=== PATIENT | male | born 1995 | race Caucasian/White ===

== ENCOUNTER 2020-02-19 11:39 | Emergency (ER) | payer MEDICAID ==
[2020-02-19] MEDS ORDERED: IBUPROFEN 800 MG TABLET PO ONE (12:03)
--- NOTE | 2020-02-19 12:09 | ER Document Report ---
HPI - HPI Time Seen by Provider: 02/19/20 12:00 Pain Level: 4 Notes: 24-year-old male presents emergency room with complaints of right elbow and right forearm pain after a box truck door fell onto his right forearm and right elbow 2 hours ago. Denies any other area of injury. States pain is worse with movement, 5 out of 5 with movement, at rest it is 2 out of 5. No [id number] medications have been tried. No icing or heat has been applied. Denies any numbness or tingling down the arm. Patient states pain is worse with supination. Denies fevers, chills, chest pain,palpitations, shortness of breath, dyspnea, nausea, vomiting, diarrhea, abdominal pain, hematuria,blurred vision, double vision, loss of vision, speech changes, LH, dizziness, syncope, headaches, wheezing, ST, URI, neck pain, weakness, bowel or bladder dysfunction, saddle anesthesia, numbness or tingling in bilateral upper or lower extremities equally, muscle paralysis, weakness in bilateral upper or lower extremities equally or rash. Denies IV drug use. MEDICATIONS: I agree with the patient medications as charted by the RN. ALLERGIES: I agree with the allergies as charted by the RN. PAST MEDICAL HISTORY/PAST SURGICAL HISTORY: Reviewed and agree as charted by RN. SOCIAL HISTORY: Reviewed and agree as charted by RN. FAMILY HISTORY: No significant familial comorbid conditions directly related to patient complaint EXAM: Reviewed vital signs as charted by RN. REVIEW OF SYSTEMS:reviewed vital signs by RN CONSTITUTIONAL : Denies fever, chills, or sweats. Denies recent illness. EENT: Denies eye, ear, throat, or mouth pain or symptoms. Denies nasal or sinus congestion or discharge. Denies throat, tongue, or mouth swelling or difficulty swallowing. CARDIOVASCULAR: Denies chest pain. Denies palpitations or racing or irregular heart beat. Denies ankle edema. RESPIRATORY: Denies cough, cold, or chest congestion. Denies shortness of breath, difficulty breathing, or wheezing. GASTROINTESTINAL: Denies abdominal pain or distention. Denies nausea, vomiting , or diarrhea. Denies blood in vomitus, stools, or per rectum. Denies black, tarry stools. Denies constipation. GENITOURINARY: Denies difficulty urinating, painful urination, burning, frequency, blood in urine, or discharge. MUSCULOSKELETAL: reports right elbow/forearm pain. Denies back or neck pain or stiffness. Denies joint pain or swelling. SKIN: Denies rash, lesions or sores. HEMATOLOGIC : Denies easy bruising or bleeding. LYMPHATIC: Denies swollen, enlarged glands. NEUROLOGICAL: Denies confusion or altered mental status. Denies passing out or loss of consciousness. Denies dizziness or lightheadedness. Denies headache. Denies weakness or paralysis or loss of use of either side. Denies problems with gait or speech. Denies sensory loss, numbness, or tingling. Denies s eizures. PSYCHIATRIC: Denies anxiety or stress. Denies depression, suicidal ideation, or homicidal ideation. ALL OTHER SYSTEMS REVIEWED AND NEGATIVE. Dictation was performed using [employer] recognition software PHYSICAL EXAMINATION: GENERAL: Well-appearing, well-nourished and in no acute distress. HEAD: Atraumatic, normocephalic. EYES: Pupils equal round and reactive to light, extraocular movements intact, sclera anicteric, conjunctiva are normal. ENT: Nares patent, oropharynx clear without exudates. Moist mucous membranes. NECK: Normal range of motion, supple without lymphadenopathy LUNGS: Breath sounds clear to auscultation bilaterally and equal. No wheezes rales or rhonchi. HEART: Regular rate and rhythm without murmurs ABDOMEN: Soft, nontender, nondistended abdomen. No guarding, no rebound. No masses appreciated. Musculoskeletal: Normal range of motion, no pitting or edema. No cyanosis. right elbow with abduction and flexion. pain with supination, pronation, extension. Locate Technician + 2 BUE equally. APROM in shoulder. DTR +2 in BUE equally. No Noted crepitus with APROM in elbow. negative drop arm, neer sign, morfin test, Full motor and sensory function in BIBI. No vascular compromise. No noted swelling, ecchymosis, lacerations, scars. Noted abrasions to lateral aspect of right elbow. No erythema or induration noted to area. Intact median, ulnar and radial nerves bilaterally and equally. muscle strength 5/5 NEUROLOGICAL: Cranial nerves grossly intact. Normal speech, normal gait. Normal sensory, motor exams PSYCH: Normal mood, normal affect. SKIN: Warm, Dry, normal turgor, no rashes or lesions noted. - MUSCULOSKELETAL Musculoskeletal: REPORTS: Extremity pain - R Arm Past Medical History - General Information source: Patient - Social History Smoking Status: Current Every Day Smoker Frequency of alcohol use: None Drug Abuse: None Family History: Reviewed & Not Pertinent Patient has homicidal ideation: No - Immunizations Immunizations up to date: Yes Hx Diphtheria, Pertussis, Tetanus Vaccination: Yes Vertical Provider Document - CONSTITUTIONAL Agree With Documented VS: Yes Exam Limitations: No Limitations General Appearance: WD/WN - INFECTION CONTROL TRAVEL OUTSIDE OF THE [place] IN LAST 30 DAYS: No Course - Re-evaluation Re-evalutation: 02/19/20 12:07 Afebrile vital stable no distress. 800 mg of ibuprofen to for slight discomfort. X-ray of right elbow and right forearm negative for any acute fracture dislocation or foreign body. Does the patient that he does have a sprain. Advised to follow-up in 5 days for repeat x-rays if he still having same pain is or can be occult fractures not seen on first injury due to swelling. Patient placed in a sling, patient given prescription for naproxen and advised to follow-up with clinical studies specialist as well as primary care provider. Alternate between ice and heat today and then switch over to heat 20 minutes on 20 minutes off several times a day. Advised to take arm out of sling to prevent contracture. After performing a Medical Screening Examination, I estimate there is LOW risk for OPEN FRACTURE, COMPARTMENT SYNDROME, DEEP VENOUS THROMBOSIS, ACUTE TENDON RUPTURE, or NEUROVASCULAR INJURY thus I consider the discharge disposition reasonable. I have reevaluated this patient multiple times and no significant life threatening changes are noted. The patient and I have discussed the diagnosis and risks, and we agree with discharging home to closely follow-up with their primary doctor or the referral orthopedist with the understanding that symptoms and presentations can change. We also discussed returning to the Emergency Department immediately if new or worsening symptoms occur. We have discussed the symptoms which are most concerning (e.g., changing or worsening pain, numbness, weakness) that necessitate immediate return 02/19/20 13:08 - Vital Signs Vital signs: Temp Pulse Resp BP Pulse Ox 98.7 F 85 18 138/87 H 99 02/19/20 11:44 02/19/20 11:44 02/19/20 11:44 02/19/20 11:44 02/19/20 11:44 Discharge - Discharge Clinical Impression: Right elbow pain, Right forearm pain Condition: Stable Disposition: HOME, SELF-CARE Instructions: Anti-Inflammatory Medication ([facility]), Sling as Treatment ([facility]) Additional Instructions: Your x-rays today were negative for any acute fracture dislocation. Please wear the sling as directed. Please follow-up with clinical studies specialist within 24 to 48 hours. Follow-up with your primary care provider as needed. Alternate between Tylenol and ibuprofen for pain control return immediately for any new or worsening symptoms. Follow up with primary care provider, call tomorrow to make followup appointment. Prescriptions: Naproxen 500 mg PO BID #10 tablet Forms: Return to Work Referrals: CARLA LYNNE MD [ACTIVE STAFF] - Follow up as needed SARA KNOX MD [ACTIVE STAFF] - Follow up as needed
--- NOTE | 2020-02-19 12:39 | RADIOLOGY REPORT (SQ) ---
EXAM DESCRIPTION: ELBOW RIGHT OVER 2 VIEWS IMAGES COMPLETED DATE/TIME: 02/19/2020 12:21 pm REASON FOR STUDY: box door from truck fell onto R elbow/Rforearm COMPARISON: None. NUMBER OF VIEWS: Four views. TECHNIQUE: AP, lateral, and both oblique radiographic images acquired of the right elbow. LIMITATIONS: None. FINDINGS: MINERALIZATION: Normal. BONES: No acute fracture or dislocation. No worrisome bone lesions. JOINT: No effusion. SOFT TISSUES: No soft tissue swelling. No foreign body. OTHER: No other significant finding. IMPRESSION: NEGATIVE STUDY OF THE RIGHT ELBOW. NO RADIOGRAPHIC EVIDENCE OF ACUTE INJURY. TECHNICAL DOCUMENTATION: JOB ID: [id number] 2010 [employer]- All Rights Reserved Reading location - IP/workstation name: [email or web address]
--- NOTE | 2020-02-19 12:39 | RADIOLOGY REPORT (SQ) ---
EXAM DESCRIPTION: FOREARM RIGHT IMAGES COMPLETED DATE/TIME: 02/19/2020 12:21 pm REASON FOR STUDY: box door from truck fell onto R elbow/Rforearm COMPARISON: None. NUMBER OF VIEWS: Two views. TECHNIQUE: Two radiographic images acquired of the right forearm, including elbow and wrist in at le ast one projection. LIMITATIONS: None. FINDINGS: MINERALIZATION: Normal. BONES: No acute fracture. No worrisome bone lesions. SOFT TISSUES: No obvious swelling or foreign body. OTHER: No other significant finding. IMPRESSION: NEGATIVE STUDY OF THE RIGHT FOREARM. NO RADIOGRAPHIC EVIDENCE OF ACUTE INJURY. TECHNICAL DOCUMENTATION: JOB ID: [id number] 2010 [employer]- All Rights Reserved Reading location - IP/workstation name: [email or web address]
[2020-02-19 12:46] VITALS: BP 136/83
== END 2020-02-19 13:00 | disposition home or self-care (01) ==
LOC: ER 11:39
DX: M25.521 Pain in right elbow (principal); M79.631 Pain in right forearm; W20.8XXA Other cause of strike by thrown, projected or falling object, initial encounter; F17.200 Nicotine dependence, unspecified, uncomplicated
CPT/HCPCS: 99283; 73080; 73090; J3490

== ENCOUNTER 2020-06-22 14:55 | Emergency (ER) | payer MEDICAID ==
[2020-06-22 15:10] VITALS: BP 132/84
[2020-06-22] MEDS ORDERED: LIDOCAINE 1% INJ-PF (10 MG/ML) 30 ML SDV ONE (15:28)
--- NOTE | 2020-06-22 15:31 | ER Document Report ---
ED General - General Chief Complaint: Abscess Stated Complaint: ABSCESS Time Seen by Provider: 06/22/20 15:06 Primary Care Provider: [facility] [Provider Group] - Follow up as needed [facility] [Provider Group] - Follow up as needed TRAVEL OUTSIDE OF THE [place] IN LAST 30 DAYS: No - HPI Notes: Patient is a 24-year-old male who presents with an abscess to his left buttock that began 5 days ago. Patient states he was seen at urgent care yesterday and was placed on Bactrim. He states his pain worsened today which caused him to come to the ED. He denies fever, chest pain, and shortness of breath. He reports a prior history of 3 abscesses in the same area, 2 were treated with antibiotics alone where one had to be lanced. He denies any other complaints today. - Related Data Allergies/Adverse Reactions: No Known Allergies Allergy (Verified 06/22/20 15:12) Past Medical History - General Information source: Patient - Social History Smoking Status: Current Every Day Smoker Frequency of alcohol use: Occasional Drug Abuse: Marijuana Family History: Reviewed & Not Pertinent - Immunizations Immunizations up to date: Yes Hx Diphtheria, Pertussis, Tetanus Vaccination: Yes Review of Systems - Review of Systems Constitutional: No symptoms reported EENT: No symptoms reported Cardiovascular: No symptoms reported Respiratory: No symptoms reported Gastrointestinal: No symptoms reported Genitourinary: No symptoms reported Male Genitourinary: No symptoms reported Musculoskeletal: No symptoms reported Skin: See HPI Hematologic/Lymphatic: No symptoms reported Neurological/Psychological: No symptoms reported Physical Exam - Vital signs Vitals: Temp Pulse Resp BP Pulse Ox 98.4 F 130 H 18 132/84 H 100 06/22/20 15:06 06/22/20 15:06 06/22/20 15:06 06/22/20 15:06 06/22/20 15:06 - Notes Notes: PHYSICAL EXAMINATION: GENERAL: Well-appearing, well-nourished and in no acute distress. HEAD: Atraumatic, normocephalic. EYES: sclera anicteric, conjunctiva are normal. ENT: Moist mucous membranes. NECK: Normal range of motion LUNGS: Normal work of breathing HEART: 2+ radial pulses bilaterally EXTREMITIES: no pitting or edema. No cyanosis. NEUROLOGICAL: No focal neurological deficits. Moves all extremities spontaneously and on command. PSYCH: Normal mood, normal affect. SKIN: ~6cm area of erythema and warmth with fluctance and induration to the left buttock. No involvement or extension into the rectum. No pustule or active drainage. Course - Re-evaluation Re-evalutation: Patient is a 24 y/o male who presents with an abscess to his left buttock that began five days ago and continues to worsen. Patient was started on bactrim yesterday by a provider at an urgent care. Vital signs are normal and patient is afebrile. On exam, ~6cm abscess to the left buttock with no involvement or extension into the rectum. Incision and drainage performed with out complications. Patient instructed to follow up with his PCP or return in three days for a wound check and packing removal. Patient also instructed to continue to take the bactrim as prescribed. Return precautions given. Patient understands and is in agreement with the plan. Patient will be discharged home. - Vital Signs Vital signs: Temp Pulse Resp BP Pulse Ox 98.4 F 130 H 18 132/84 H 100 06/22/20 15:06 06/22/20 15:06 06/22/20 15:06 06/22/20 15:06 06/22/20 15:06 - Laboratory Results Critical Laboratory Results Reviewed: No Critical Results - Radiology Results Critical Radiology Results Reviewed: No Critical Results Procedures - Incision and Drainage Left Medial Buttock Type: Simple Anesthetic type: 1% Lidocaine Blade size: 11 I&D procedure: Betadine prep applied, Shurclens applied, Iodoform packing placed Incision Method: Incision made by scalpel Amount/type of drainage: Copious purulent/bloody drainage Notes: Patient tolerated well with no complications Discharge - Discharge Clinical Impression: Abscess of buttock, left Condition: Stable Disposition: HOME, SELF-CARE Instructions: Abscess ([facility]), Trimethoprim-Sulfa ([facility]) Additional Instructions: Follow up with the surgery clinic or return for a wound rechecking and packing removal in three days. Continue to take bactrim as prescribed. Forms: Return to Work Referrals: [facility] [Provider Group] - Follow up as needed [facility] [Provider Group] - Follow up as needed
[2020-06-22] MEDS ORDERED: OXYCODONE-ACETAMINOPHEN 5-325 MG TABLET PO ONE (16:16)
== END 2020-06-22 16:49 | disposition home or self-care (01) ==
LOC: ER 14:55
DX: L02.31 Cutaneous abscess of buttock (principal); F17.200 Nicotine dependence, unspecified, uncomplicated
CPT/HCPCS: 99283; 87070; 87205; 87075; 87077; 10060; J3490